=== PATIENT | female | born 1985 | race Caucasian/White ===

== ENCOUNTER 2021-03-26 19:36 | Emergency (ER) | payer MEDICAID ==
[~2021-03-26] VITALS: Ht 157.5 cm; Wt 62.6 kg
[2021-03-26 20:05] VITALS: BP_SYST 97
--- NOTE | 2021-03-26 20:05 | NUR ---
PT TO BED 4 FOR EVAUATION.
--- NOTE | 2021-03-26 20:08 | NUR ---
PT AAO AND WAS BIB SPOUSE FOR LEFT ANKLE PAIN. PT REPORTED TRIPPING ON A STEP AND TWISTING HER ANKLE AT A [facility] APPROXIMATELY ONE HOUR AGO. PT COMPLAINS OF PAIN AND DESCRIBES IT BURNING. PT RATES IT 9/10 ON PAIN SCALE. PT HAS NO MEDICAL HISTORY TO REPORT.
--- NOTE | 2021-03-26 20:10 | NUR ---
DR. DAVIS AT BEDSIDE TO ASSESS.
[2021-03-26] MEDS ORDERED: NAPR-1172 PO (21:01)
[2021-03-26 21:09] VITALS: BP_SYST 97
--- NOTE | 2021-03-26 21:11 | NUR ---
Patient given written and verbal discharge instructions and verbalizes understanding. ER dR Hammond discussed with patient the results and treatment provided. Patient in stable condition. ID arm band removed. Rx PER MD. Patient educated on pain management and to follow up with PMD. Pain Scale 0. Opportunity for questions provided and answered. Medication side effect fact sheet provided.
== END 2021-03-26 21:11 | disposition home or self-care (01) ==
LOC: SED 19:36
DX: S93.402A Sprain of unspecified ligament of left ankle, initial encounter (principal); Z79.899 Other long term (current) drug therapy; W01.0XXA Fall on same level from slipping, tripping and stumbling without subsequent striking against object, initial encounter; Y93.89 Activity, other specified; Y92.89 Other specified places as the place of occurrence of the external cause; Y99.8 Other external cause status
CPT/HCPCS: 99283